=== PATIENT | male | born 1980 | race Native Hawaiian/Other Pacific Islander ===

== ENCOUNTER 2021-02-10 11:40 | Emergency (ER) | payer OTHER ==
[~2021-02-10] VITALS: Ht 177.8 cm; Wt 81.6 kg
[2021-02-10 12:37] LABS: POTASSIUM 3.4 mmol/L (3.6-5.2)
[2021-02-10 12:38] LABS: PLATELET COUNT 248 K/uL (142-355)
[2021-02-10 12:48] LABS: PARTIAL THROMBOPLASTIN TIME 23.2 SECONDS (24.5-33.6)
[2021-02-10 14:30] VITALS: BP 126/88; TEMP 98
== END 2021-02-10 14:30 | disposition home or self-care (01) ==
LOC: ED 11:40
PROVIDERS: Emergency Medicine
DX: K92.0 Hematemesis (principal); F10.129 Alcohol abuse with intoxication, unspecified; Y90.8 Blood alcohol level of 240 mg/100 ml or more
CPT/HCPCS: 80053; 80320; 82150; 83690; 85027; 85610; 85730; 96360; 99284